=== PATIENT | female | born 1980 | race Caucasian/White ===

== ENCOUNTER 2022-01-11 03:02 | Outpatient (CLI) | payer OTHER ==
[~2022-01-11] VITALS: Ht 170.2 cm; Wt 102.7 kg
--- NOTE | 2022-01-11 03:20 | NUR ---
PT TO UNIT WITH COMPLAINTS OF ELEVATED BP AT HOME AND PAIN FROM A TOOTH ABCESS ON THE RIGHT SIDE OF HER MOUTH, ALSO STATES A SEVERE HEADACHE DUE TO TOOTH ABCESS PAIN. PT ORIENTED TO ROOM, CHANGED INTO GOWN. TWIN , [id number] APPLIED, VS OBTAINED. PT DENIES VAGINAL BLEEDING, LOF AND CTX. NO SVE PERFORMED.
[2022-01-11] MEDS ORDERED: PRENATAL TABLET PO (03:43)
[2022-01-11] MEDS ORDERED: ASPIRIN 81M81 MG/TA2 PO (03:44)
[2022-01-11] MEDS ORDERED: TYLENOL 500MG500 MG PO (03:45)
[2022-01-11 04:00] VITALS: BP 160/75; PULSE 83
--- NOTE | 2022-01-11 04:20 | NUR ---
0420- DISCUSSED DR. AHN'S REQUEST FOR PT TO STAY FOR LABWORK AND MONITORING OF BABY AND INCREASED BP. PT STATES THAT SHE FEELS BETTER AND WOULD RATHER GO TO [facility] FOR FURTHER CARE. NOTIFIED PT THAT IF SHE WISHES TO LEAVE AT THIS TIME WITHOUT FURTHER MONITORING SHE WOULD NEED TO SIGN OUT AMA. PT VERBALIZES UNDERSTANDING AND REQUESTS TO LEAVE AMA. 0422- MONITORING DC'D. PT CHANGING INTO OWN CLOTHES WHILE PAPERWORK IS PREPARED.
[2022-01-11 04:21] VITALS: BP 174/84; PULSE 85
--- NOTE | 2022-01-11 04:30 | NUR ---
AMA PAPERWORK PRESENTED TO PT. THIS NURSE EDUCATED PT ON THE RISKS OF LEAVING AGAINST MEDICAL ADVICE, INCLUDING RISK OF BLOOD PRESSURE CONTINUEING TO INCREASE LEADING TO MATERNAL SEIZURE CAUSING INJURY TO SELF OR UNBORN BABIES. PT VERBALIZED UNDERSTANDING OF RISKS, OPTS TO LEAVE AMA. PAPERWORK SIGNED. PT OFF THE UNIT AMBULATORY STATING INTENT TO GO TO [facility] AT THIS TIME FOR CARE.
== END 2022-01-11 04:30 | disposition home or self-care (01) ==
LOC: LDRO 03:02 → LDR 03:35 → LDRO 04:30
DX: O09.513 Supervision of elderly primigravida, third trimester (principal); Z3A.38 38 weeks gestation of pregnancy
CPT/HCPCS: OP